=== PATIENT | male | born 1990 ===

== ENCOUNTER 2025-04-14 06:16 | Day surgery (SDC) | payer MEDICARE ==
[2025-04-12 15:48] LABS: Anion Gap 6.6 mEq/L (5.0-15.0); BUN Blood Urea Nitrogen 13.0 mg/dL (7-18); Glucose Level 157.0 mg/dL (74-106); Potassium 3.6 mEq/L (3.5-5.1)
[2025-04-14] MEDS: NA CHLORIDE 0.9% 1,000 ML ONE (06:45)
[2025-04-14] MEDS ORDERED: GLYCOPYRROLATE 0.2 MG/ML SYR ONE (08:29)
[2025-04-14] MEDS ORDERED: EPHEDRINE SULF 50 MG/ML VIAL ONE (08:29)
[2025-04-14 12:39] VITALS: BP 126/75; TEMP 97.4; O2SAT 99
[2025-04-14 16:49] LABS: C.diff Antigen/Toxin Ag neg : Tox neg (NEG : NEG); CDIFF INTERNAL NEG CONTROL White Background (WHITE BKGD); STOOL CONSISTENCY Formed/Solid (soft)
[2025-04-18 11:48] LABS: Fat Screen, Stool Normal (Normal)
== END 2025-04-14 09:48 | disposition home or self-care (01) ==
LOC: OR 06:16
PROVIDERS: ATTEND Internal Medicine Gastroenterology
PROC: 0DB88ZX Excision of Small Intestine, Via Natural or Artificial Opening Endoscopic, Diagnostic (ICD-10-PCS; 2025-04-14)
PROC: 0DB78ZX Excision of Stomach, Pylorus, Via Natural or Artificial Opening Endoscopic, Diagnostic (ICD-10-PCS; 2025-04-14)
PROC: 0DB68ZX Excision of Stomach, Via Natural or Artificial Opening Endoscopic, Diagnostic (ICD-10-PCS; principal; 2025-04-14 08:00)
DX: K30 Functional dyspepsia (principal); B96.81 Helicobacter pylori [H. pylori] as the cause of diseases classified elsewhere; R14.1 Gas pain; R14.2 Eructation; K59.1 Functional diarrhea; K29.50 Unspecified chronic gastritis without bleeding; K21.00 Gastro-esophageal reflux disease with esophagitis, without bleeding; K29.60 Other gastritis without bleeding
CPT/HCPCS: 36415; 80048; 82274; 82705; 83631; 87045; 87046; 87324; 88305; 88312; 89055; 93005; J2704; J7030

== ENCOUNTER 2025-05-05 07:14 | Day surgery (SDC) | payer MEDICARE ==
[2025-05-05] MEDS ORDERED: EPHEDRINE SULF 50 MG/ML VIAL ONE (08:23)
[2025-05-05] MEDS ORDERED: LIDOCAINE 1% MPF 5 ML VIAL ONE (08:24)
[2025-05-05] MEDS ORDERED: SIMETHICONE 40 MG/ 0.6 ML ONE (08:35)
[2025-05-05 10:40] VITALS: BP 111/53; TEMP 99.2; O2SAT 98
== END 2025-05-05 10:07 | disposition home or self-care (01) ==
LOC: OR 07:14
PROVIDERS: ATTEND Internal Medicine Gastroenterology
PROC: 0DBP8ZX Excision of Rectum, Via Natural or Artificial Opening Endoscopic, Diagnostic (ICD-10-PCS; 2025-05-05)
PROC: 0DBF8ZX Excision of Right Large Intestine, Via Natural or Artificial Opening Endoscopic, Diagnostic (ICD-10-PCS; 2025-05-05)
PROC: 0DBG8ZX Excision of Left Large Intestine, Via Natural or Artificial Opening Endoscopic, Diagnostic (ICD-10-PCS; principal; 2025-05-05 08:38)
DX: R19.4 Change in bowel habit (principal); R19.7 Diarrhea, unspecified; K62.1 Rectal polyp
CPT/HCPCS: 88305; J2003; J2704